=== PATIENT | male | born 1940 | race Caucasian/White ===

== ENCOUNTER 2022-05-12 14:19 | Observation (INO) ==
[2022-05-12] MEDS ORDERED: ASPIRIN 325 MG TABLET PO STA (15:23)
[2022-05-12 15:27] LABS: Basophils % 0.2 % (0.0-0.8); Eosinophils % 0.1 % (0.00-10.9); Hematocrit 42.7 VOL% (42.0-52.0); Hemoglobin 13.9 GM/DL (14.0-18.0); Immature Granulocytes % 2.2 %; Immature Granulocytes Absolute 0.18 #; Lymphocytes # 0.8 10*3/uL (1.4-4.0); Lymphocytes % 9.7 % (21.2-54.2); Mean Corpuscular HGB Conc 32.6 GM/DL (32-36); Mean Corpuscular Volume 100.2 FL (87-102); Mean Platelet Volume 9.5 FL (9.6-12.0); Monocytes # 0.3 10*3/uL (0.11-0.8); Neutrophils % 84.8 % (38.7-73.9); Platelet Count 141 T/CUMM (130-400); Red Blood Count 4.26 MC/CUMM (3.8-5.5); Red Cell Distribution Width 16.6 % (9.3-17.3); White Blood Count 8.3 T/CUMM (4-12)
[2022-05-12 15:34] LABS: PT Patient Result 10.9 SECS (10.1-12.1)
[2022-05-12 15:49] LABS: Albumin 3.1 G/DL (3.4-5.0); Bilirubin,Total 0.7 MG/DL (0.20-1.00); Calcium 8.7 MG/DL (8.5-10.1); Osmolality,Calculated 283.3 MOS/KG (273-304); Potassium 4.9 MMOL/L (3.5-5.1); Total Protein 5.7 G/DL (6.4-8.2)
[2022-05-12] MEDS ORDERED: MORPHINE 2 MG/1 ML SYRINGE IV PRN (16:20)
[2022-05-12] MEDS ORDERED: ONDANSETRON 4 MG/2 ML VIAL IV PRN (16:20)
[2022-05-12] MEDS ORDERED: NITROGLYCERIN SL 0.4 MG TABLET SL PRN (16:27)
[2022-05-12] MEDS ORDERED: ENOXAPARIN 40 MG/0.4 ML SYRINGE SUBCUT SCH (21:00)
[2022-05-12] MEDS: ACETYLCYSTEINE 600 MG CAPSULE PO SCH (22:00)
[2022-05-13] MEDS ORDERED: ALBUTEROL 2.5 MG/3 ML NEB RESP TX PRN (04:58)
[2022-05-13 05:50] LABS: Basophils % 0.3 % (0.0-0.8); Eosinophils # 0.1 10*3/uL (0.0-0.87); Eosinophils % 0.7 % (0.00-10.9); Hematocrit 39.3 VOL% (42.0-52.0); Immature Granulocytes % 1.7 %; Immature Granulocytes Absolute 0.12 #; Lymphocytes # 2.1 10*3/uL (1.4-4.0); Lymphocytes % 29.8 % (21.2-54.2); Mean Corpuscular HGB Conc 33.1 GM/DL (32-36); Mean Corpuscular Volume 100.5 FL (87-102); Mean Platelet Volume 9.4 FL (9.6-12.0); Monocytes # 0.5 10*3/uL (0.11-0.8); Neutrophils % 60.5 % (38.7-73.9); Platelet Count 126 T/CUMM (130-400); Red Blood Count 3.91 MC/CUMM (3.8-5.5); Red Cell Distribution Width 16.9 % (9.3-17.3)
[2022-05-13] MEDS: CLOTRIMAZOLE 10 MG TROCHE PO SCH ×3 (06:10→16:40)
[2022-05-13 06:21] LABS: Platelet Estimate Decreased
[2022-05-13 06:23] LABS: Calcium 8.6 MG/DL (8.5-10.1); Osmolality,Calculated 279.4 MOS/KG (273-304); Potassium 3.9 MMOL/L (3.5-5.1); Risk Ratio 2.25; Thyroid Stimulating Hormone 0.661 uIU/ml (0.358-3.74); VLDL Cholesterol 52.8 MG/DL
[2022-05-13] MEDS ORDERED: DEXAMETHASONE 4 MG TABLET PO SCH (09:00)
[2022-05-13] MEDS ORDERED: ASPIRIN EC 81 MG TABLET PO SCH (09:00)
[2022-05-13] MEDS ORDERED: MONTELUKAST 10 MG TABLET PO SCH (09:00)
[2022-05-13] MEDS ORDERED: methylPREDNISolone 4 MG TABLET PO SCH (09:00)
[2022-05-13] MEDS ORDERED: atenoloL 25 MG TABLET PO SCH (09:00)
[2022-05-13] MEDS ORDERED: EZETIMIBE 10 MG TABLET PO SCH (09:00)
[2022-05-13] MEDS ORDERED: FAMOTIDINE 20 MG TABLET PO SCH (09:00)
[2022-05-13] MEDS ORDERED: FLUoxetine 20 MG CAPSULE PO SCH (09:00)
[2022-05-13] MEDS ORDERED: PANTOPRAZOLE 40 MG TABLET PO SCH ×2 (09:00)
[2022-05-13] MEDS: ACETYLCYSTEINE 600 MG CAPSULE PO SCH (13:00)
[2022-05-13 16:26] VITALS: BP 104/59
== END 2022-05-13 17:05 | disposition home or self-care (01) ==
LOC: N.EDINP 14:19 → N.ED 14:19 → SUATTDRO 16:17 → N.EDINP 05-13 03:10 → N.TELEN 05-13 04:22
PROVIDERS: ADMIT Hospitalist; ATTEND Hospitalist